=== PATIENT | female | born 1950 | race Caucasian/White ===

== ENCOUNTER 2017-10-29 15:05 | Emergency (ER) | payer MEDICAID ==
[~2017-10-29] VITALS: Ht 142.2 cm; Wt 71.2 kg
[2017-10-29 15:05] VITALS: BP_SYST 124
[2017-10-29 19:35] LABS: CREATININE 0.62 mg/dL (0.55-1.30); POTASSIUM 3.2 mmol/L (3.5-5.1)
[2017-10-29 19:39] LABS: ALBUMIN 2.7 g/dL (3.4-4.8); BASOPHILS % (AUTO) 0.3 % (0.0-2.0); EOSINOPHILS # (AUTO) 0.3 K/uL (0.0-0.4); EOSINOPHILS % (AUTO) 2.3 % (0.0-4.0); HEMATOCRIT 31.1 % (36-48); HEMOGLOBIN 10.3 g/dL (12.0-16.0); LYMPHOCYTES # (AUTO) 2.2 K/uL (1.0-5.5); LYMPHOCYTES % (AUTO) 15.9 % (20.5-51.5); MEAN CORPUSCULAR HEMOGLOBIN 28 pg (27-31); MEAN CORPUSCULAR HGB CONC 33 % (32-36); MEAN CORPUSCULAR VOLUME 85 fL (79.0-98.0); MONOCYTES # (AUTO) 0.9 K/uL (0.0-1.0); MONOCYTES % (AUTO) 6.7 % (1.7-9.3); NEUTROPHILS # (AUTO) 10.5 K/uL (1.8-7.7); NEUTROPHILS % (AUTO) 74.8 % (40.0-70.0); PLATELET COUNT (AUTO) 516 K/uL (130-430); RED BLOOD CELL COUNT(AUTO) 3.66 MIL/uL (4.2-6.2); RED CELL DISTRIBUTION WIDTH 13.3 % (9.0-15.0); TOTAL BILIRUBIN 0.4 mg/dL (0.0-1.0); WHITE BLOOD COUNT (AUTO) 13.9 K/uL (4.8-10.8)
[2017-10-29 20:36] LABS: BILIRUBIN,URINE NEGATIVE (NEGATIVE); BLOOD, URINE NEGATIVE (NEGATIVE); COLOR,URINE ORANGE (YELLOW); PH,URINE 5.5 (5.0-8.0); PROTEIN URINE 2+ (NEGATIVE)
[2017-10-29 20:37] LABS: CLARITY/URINE HAZY (CLEAR); GLUCOSE,URINE NEGATIVE (NEGATIVE); KETONES,URINE NEGATIVE (NEGATIVE); LEUKOCYTE ESTERASE ,URINE NEGATIVE (NEGATIVE); NITRITE, URINE NEGATIVE (NEGATIVE)
[2017-10-29 20:38] LABS: BACTERIA,URINE FEW /HPF (None Seen); RBC,URINE 0-3 /HPF (0-3); WBC,URINE 0-3 /HPF (0-3)
[2017-10-29 20:39] LABS: OTHER CASTS, URINE CELLULAR CAST /LPF (None Seen)
[2017-10-29] MEDS ORDERED: POTASSIUM CHLORIDE 20 MEQ/PKT PACKET PO ONE (21:15)
[2017-10-29 21:40] VITALS: BP_SYST 123
== END 2017-10-29 21:40 | disposition home or self-care (01) ==
LOC: SED 15:05
DX: K59.00 Constipation, unspecified (principal); E87.6 Hypokalemia; K21.9 Gastro-esophageal reflux disease without esophagitis; I10 Essential (primary) hypertension; Z90.49 Acquired absence of other specified parts of digestive tract; Z98.890 Other specified postprocedural states
CPT/HCPCS: 36415; 80053; 81000-TC; 83690-TC; 85025; 99285

== ENCOUNTER 2019-01-06 17:09 | Emergency (ER) | payer MEDICAID ==
[~2019-01-06] VITALS: Ht 142.2 cm; Wt 66.2 kg
[2019-01-06 17:15] VITALS: BP_SYST 141
[2019-01-06] MEDS ORDERED: MORPHINE 4 MG/ML INJ. SYRINGE IM ONE (21:00)
[2019-01-06 21:20] VITALS: BP_SYST 129
== END 2019-01-06 21:20 | disposition home or self-care (01) ==
LOC: SED 17:09
DX: R10.30 Lower abdominal pain, unspecified (principal); K21.9 Gastro-esophageal reflux disease without esophagitis; I10 Essential (primary) hypertension
CPT/HCPCS: 99283; J2270

== ENCOUNTER 2022-11-05 18:29 | Emergency (ER) | payer MEDICAID ==
[~2022-11-05] VITALS: Ht 142.2 cm; Wt 74.8 kg
[2022-11-05 18:47] VITALS: BP_SYST 166
--- NOTE | 2022-11-05 19:15 | NUR ---
Patient to ER bed gruber to gown for evaluation. Side rails up.
--- NOTE | 2022-11-05 19:19 | NUR ---
JOSE Bright examining patient.
[2022-11-05] MEDS ORDERED: FLUT16SP16 NS (19:28)
[2022-11-05] MEDS ORDERED: KETOROLAC TROMETHAMINE 60 MG/2 ML VIAL IM ONE (19:45)
--- NOTE | 2022-11-05 19:57 | NUR ---
Patient given written and verbal discharge instructions by Dr Garcia and verbalizes understanding. ER MD discussed with patient the results and treatment provided. Patient in stable condition. ID arm band removed. Rx of Flonase given. Patient educated on pain management and to follow up with PMD. Pain Scale 2/10. Opportunity for questions provided and answered. Medication side effect fact sheet provided.
[2022-11-05 20:00] VITALS: BP_SYST 148
== END 2022-11-05 20:00 | disposition home or self-care (01) ==
LOC: SED 18:29
DX: H68.002 Unspecified Eustachian salpingitis, left ear (principal); E11.9 Type 2 diabetes mellitus without complications; I10 Essential (primary) hypertension; Z79.899 Other long term (current) drug therapy
CPT/HCPCS: 99283; 96372; J1885